=== PATIENT | female | born 1970 | race Caucasian/White ===

== ENCOUNTER 2016-09-13 18:38 | Emergency (ER) | payer OTHER ==
--- NOTE | ~2016-09-13 | CR21 ---
[facility]. [facility] A Service of [facility] RADIOLOGY TEXT RESULTS PATIENT: WILLIAM HARTMANN LOCATION: SED : 66 UNIT #: [id number] AGE: [address]: YASIR FRANCO SEX: F ORDER DR: [id number] [place] [id number] E MR#: [id number] Acc #: [id number] NAME: WILLIAM HARTMANN : 1970 SEX: F STUDY DATE/TIME: 09/13/2016 18:50 UNIT: SED ROOM: STUDY DESCRIPTION: CR Ankle Min 3 Views Rt Attending Physician: Yasir Franco Ordering Physician: Vel Judge A.P.R.N. Primary Care Physician: Rosaura Flaherty M.D. MEDICAL IMAGING REPORT This report is preliminary unless electronic signature is present. EXAM Right ankle series INDICATION Right ankle and lower leg pain after a fall 2 hours ago. PROCEDURE 3 views of the right ankle. COMPARISON None. FINDINGS No acute fracture or dislocation. IMPRESSION No acute findings. Dictated by... Jermaine Gonzales M.D. THIS IS AN ELECTRONICALLY VERIFIED REPORT Jermaine Gonzales M.D. at 09/14/2016 2:25 PM NILSOND/thomas TD: 09/13/2016 22:34 JOB #: [id number] MEDICAL IMAGING REPORT Page 1 of 1
--- NOTE | ~2016-09-13 | CR253 ---
[facility]. [facility] A Service of [facility] RADIOLOGY TEXT RESULTS PATIENT: WILLIAM HARTMANN LOCATION: SED : [birth year] UNIT #: [id number] AGE: [address]: YASIR FRANCO SEX: F ORDER DR: [id number] [place] [id number] E MR#: [id number] Acc #: [id number] NAME: WILLIAM HARTMANN : 1970 SEX: F STUDY DATE/TIME: 09/13/2016 18:50 UNIT: SED ROOM: STUDY DESCRIPTION: CR Tibia and Fibula 2 Views Rt Attending Physician: Yasir Franco Ordering Physician: Vel Judge A.P.R.N. Primary Care Physician: Rosaura Flaherty M.D. MEDICAL IMAGING REPORT This report is preliminary unless electronic signature is present. EXAM Right tib-fib series INDICATIONS Right lower leg pain after a fall 2 hours ago. PROCEDURE Three views of the right tibia and fibula. COMPARISON None FINDINGS No acute fracture or dislocation. IMPRESSION No acute findings. Dictated by... Jermaine Gonzales M.D. THIS IS AN ELECTRONICALLY VERIFIED REPORT Jermaine Gonzales M.D. at 09/14/2016 2:25 PM EED/psc TD: 09/13/2016 22:44 JOB #: [id number] MEDICAL IMAGING REPORT Page 1 of 1
[~2016-09-13 18:38] MED LIST: CELEBREX PO; CELEXA20 MG PO; FLEXERIL10 M1 PO; OPANA ER15 M1 PO; TOPAMAX PO
[2016-09-13] MEDS ORDERED: NEURONTIN300 MG (18:40)
[2016-09-13] MEDS ORDERED: VICODIN (18:40)
== END 2016-09-13 19:50 | disposition home or self-care (01) ==
LOC: SED 18:38
DX: S93.401A Sprain of unspecified ligament of right ankle, initial encounter (principal); X58.XXXA Exposure to other specified factors, initial encounter; Y92.009 Unspecified place in unspecified non-institutional (private) residence as the place of occurrence of the external cause
CPT/HCPCS: 29405; 73590; 73610; 90471; 90715; 96372; 99283; J1885